=== PATIENT | male | born 1965 | race Caucasian/White ===

== ENCOUNTER 2022-12-10 15:20 | Emergency (ER) | payer BC ==
[~2022-12-10] VITALS: Ht 185.5 cm; Wt 114.2 kg
[2022-12-10] MEDS ORDERED: ONDANSETRON 4 MG/2 ML (SDV) Z0FRAN IVP STA (15:29)
[2022-12-10] MEDS ORDERED: NS IV 1000 ML 1,000 ML IV STA ×2 (15:29→16:19)
[2022-12-10] MEDS ORDERED: PANTOPRAZOLE 40 MG (PROTONIX) VIAL IV STA (15:29)
[2022-12-10 15:33] LABS: BASOPHILS # (AUTO) 0.1 10^3/uL (0.0-0.1); BASOPHILS % (AUTO) 1 % (0-10); EOSINOPHILS # (AUTO) 0.1 10^3/uL (0.0-0.3); EOSINOPHILS % (AUTO) 1 % (0-10); HEMATOCRIT 48 % (40-54); HEMOGLOBIN 17.1 g/dL (13.3-17.7); LYMPHOCYTES # (AUTO) 2.9 10^3/uL (1.0-4.0); LYMPHOCYTES % (AUTO) 24 % (12-44); MEAN CORPUSCULAR HEMOGLOBIN 34 pg (25-34); MEAN CORPUSCULAR HGB CONC 36 g/dL (32-36); MEAN CORPUSCULAR VOLUME 94 fL (80-99); MEAN PLATELET VOLUME 9.5 fL (9.0-12.2); MONOCYTES # (AUTO) 1.4 10^3/uL (0.0-1.0); MONOCYTES % (AUTO) 12 % (0-12); NEUTROPHILS # (AUTO) 7.8 10^3/uL (1.8-7.8); NEUTROPHILS % (AUTO) 63 % (42-75); PLATELET COUNT 192 10^3/uL (130-400); WHITE BLOOD COUNT 12.4 10^3/uL (4.3-11.0)
--- NOTE | 2022-12-10 15:40 | ED GI ---
General Chief Complaint: Abdominal/GI Problems Stated Complaint: N/V, UNABLE TO EAT/DRINK Source of Information: Patient History of Present Illness Date Seen by Provider: Dec 10, 2022 Time Seen by Provider: 15:21 Initial Comments 57 yo male presenting with complaints of n/v x 1 week and not able to keep water or food down. He thinks that he has a stomach bug to cause his symptoms. 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 He denies eating any different foods or new things. He was starting to get better today as he has had no vomiting but felt light headed with standing. He talked to family members and they advised him to go to the ED to get IV fluids and nausea medicine. He denies fever, chills, diarrhea, abdominal pain, pain with urination. He has not had surgery on his abdomen before. He has a history of high blood pressure and takes medicine for that but denies other prescriptions medicines. He denies alcohol or drug use. He did not try to get in with his pcp during the last week of symptoms and feeling bad because he kept thinking it would get better. However, today after being told by family members to be seen he finally decided to be evaluated so he could IV fluid and nausea medicine. He denies allergies to any medicines. He has not had a bowel movement in the last week while he has not kept anything down. Timing/Duration: 1 Week Severity/Quality: Other (denies any pain) Activities at Onset: None Modifying Factors: Worsens With Eating Associated Symptoms: No Back Pain, No Chest Pain, No Diaphoresis, No Fever/Chills, No Fatigue, No Headache, No Heartburn; Nausea/Vomiting; No Rash, No Shortness of Air, No Swelling/Mass in Abdomen, No Syncope, No Weakness Allergies and Home Medications Allergies Coded Allergies: No Known Drug Allergies (Unverified , 12/10/22) Patient Home Medication List Home Medication List Reviewed: Yes Ondansetron (Ondansetron Odt) 4 Mg Tab.rapdis, 4 MG PO Q6H PRN for NAUSEA/VOMITING Prescribed by: LYNDON CRABTREE on 12/10/22 5901 Review of Systems Review of Systems Constitutional: No chills; dizziness (mild with standing); No fever EENTM: No Symptoms Reported Respiratory: No Symptoms Reported Cardiovascular: See HPI, Lightheadedness Gastrointestinal: See HPI Genitourinary: Denies Pain Musculoskeletal: no symptoms reported Skin: no symptoms reported Psychiatric/Neurological: No Symptoms Reported Endocrine: No Symptoms Reported Hematologic/Lymphatic: No Symptoms Reported Past Wfqfatb-Uhksnw-Lrctsc Hx Patient Social History Tobacco Use?: No Smoking Status: Never a Smoker Smokeless Tobacco Frequency: Never a User Use of E-Cig and/or Vaping dev: No Use of E-Cig and/or Vaping Raymundo: Never a User Substance use?: No Alcohol Use?: No Pt feels they are or have been: No Past Medical History Surgery/Hospitalization HX: Hypertension, [place] teeth removal Physical Exam Vital Signs Vital Signs - First Documented 12/10/22 15:22 Temp 36.6 Pulse 109 Resp 18 B/P (MAP) 155/72 (99) O2 Delivery Room Air Capillary Refill : Height/Weight/BMI Height: '" Weight: lbs. oz. kg; BMI Method: General Appearance: WD/WN, no apparent distress HEENT: PERRL/EOMI, normal ENT inspection, TMs normal, pharynx normal Neck: non-tender, full range of motion, supple, normal inspection Respiratory: chest non-tender, lungs clear, normal breath sounds, no respiratory distress, no accessory muscle use Cardiovascular: normal peripheral pulses, no edema, no murmur, tachycardia (102 when first walks in the room but slowing as he rests on the bed) Peripheral Pulses: 2+ Carotid (R), 2+ Carotid (L), 2+ Radial Pulses (R), 2+ Radial Pulses (L) Gastrointestinal: normal bowel sounds, non tender, soft, no pulsatile mass Rectal: deferred Extremities: normal range of motion, non-tender, normal capillary refill Neurologic/Psychiatric: [employer] worker II-XII nml as tested, alert, normal mood/affect, oriented x 3 Skin: normal color, warm/dry Progress/Results/Core Measures Results/Orders Lab Results Laboratory Tests Test 12/10/22 15:27 12/10/22 17:09 Range/Units White Blood Count 12.4 H 4.3-11.0 10^3/uL Red Blood Count 5.04 4.30-5.52 10^6/uL Hemoglobin 17.1 13.3-17.7 g/dL Hematocrit 48 40-54 % Mean Corpuscular Volume 94 80-99 fL Mean Corpuscular Hemoglobin 34 25-34 pg Mean Corpuscular Hemoglobin Concent 36 32-36 g/dL Red Cell Distribution Width 13.0 10.0-14.5 % Platelet Count 192 130-400 10^3/uL Mean Platelet Volume 9.5 9.0-12.2 fL Immature Granulocyte % (Auto) 0 % Neutrophils (%) (Auto) 63 42-75 % Lymphocytes (%) (Auto) 24 12-44 % Monocytes (%) (Auto) 12 0-12 % Eosinophils (%) (Auto) 1 0-10 % Basophils (%) (Auto) 1 0-10 % Neutrophils # (Auto) 7.8 1.8-7.8 10^3/uL Lymphocytes # (Auto) 2.9 1.0-4.0 10^3/uL Monocytes # (Auto) 1.4 H 0.0-1.0 10^3/uL Eosinophils # (Auto) 0.1 0.0-0.3 10^3/uL Basophils # (Auto) 0.1 0.0-0.1 10^3/uL Immature Granulocyte # (Auto) 0.0 0.0-0.1 10^3/uL Sodium Level 131 L 135-145 MMOL/L Potassium Level 4.3 3.6-5.0 MMOL/L Chloride Level 84 L 98-107 MMOL/L Carbon Dioxide Level 13 L 21-32 MMOL/L Anion Gap 34 H 5-14 MMOL/L Blood Urea Nitrogen 72 H 7-18 MG/DL Creatinine 2.79 H 0.60-1.30 MG/DL Estimat Glomerular Filtration Rate 26 BUN/Creatinine Ratio 26 Glucose Level 102 70-105 MG/DL Calcium Level 8.9 8.5-10.1 MG/DL Corrected Calcium 8.5-10.1 MG/DL Total Bilirubin 1.5 H 0.1-1.0 MG/DL Aspartate Amino Transf (AST/SGOT) 77 H 5-34 U/L Alanine Aminotransferase (ALT/SGPT) 69 H 0-55 U/L Alkaline Phosphatase 84 40-136 U/L Total Protein 8.3 H 6.4-8.2 GM/DL Albumin 5.1 H 3.2-4.5 GM/DL Lipase 135 H 8-78 U/L Urine Color YELLOW Urine Clarity CLEAR Urine pH 5.5 5-9 Urine Specific Nursery 1.015 L 1.016-1.022 Urine Protein NEGATIVE NEGATIVE Urine Glucose (UA) NEGATIVE NEGATIVE Urine Ketones 3+ H NEGATIVE Urine Nitrite NEGATIVE NEGATIVE Urine Bilirubin 1+ H NEGATIVE Urine Urobilinogen 0.2 < = 1.0 MG/DL Urine Leukocyte Esterase NEGATIVE NEGATIVE Urine RBC (Auto) TRACE-I H NEGATIVE Urine RBC NONE /HPF Urine WBC NONE /HPF Urine Squamous Epithelial Cells 2-5 /HPF Urine Crystals NONE /LPF Urine Bacteria TRACE /HPF Urine Casts PRESENT /LPF Urine Hyaline Casts 5-10 H /LPF Urine Mucus NEGATIVE /LPF Urine Culture Indicated NO My Orders Orders - LYNDON CRABTREE MD Comprehensive Metabolic Panel (12/10/22 15:29) Lipase (12/10/22 15:29) Ua Culture If Indicated (12/10/22 15:29) Ed Iv/Invasive Line Start (12/10/22 15:29) Cbc With Automated Diff (12/10/22 15:29) Ns Iv 1000 Ml (Sodium Chloride 0.9%) (12/10/22 15:29) Ondansetron Injection (Zofran Injectio (12/10/22 15:29) Pantoprazole Injection (Protonix Injecti (12/10/22 15:29) Ns Iv 1000 Ml (Sodium Chloride 0.9%) (12/10/22 16:19) Vital Signs/I&O 12/10/22 15:22 Temp 36.6 Pulse 109 Resp 18 B/P (MAP) 155/72 (99) O2 Delivery Room Air Progress Progress Note #1: Progress Note Potential diagnosis of pancreatitis, gastritis, gastroenteritis, bowel ob struction, cholecystitis, colitis, diverticulitis, pyelonephritis, food poisoning, renal failure, hepatic failure, electrolyte imbalance. Obtain IV access and check labs CBC, chemistry, lipase, urinalysis. Administer normal saline 1 L IV fluid bolus for hydration, Zofran 4 mg IV for nausea and vomiting, pantoprazole 40 mg IV x1 for possible gastritis since he has not had anything on his stomach for a week. Considering imaging of his abdomen pelvis but he has no pain even on deep palpation and has normal active bowel sounds will defer radiation and imaging for now. If he has change in symptoms or labs are showing an abnormality that requires imaging then this will be added later. Can try p.o. challenge after he receives the Zofran. Progress Note #2: Time: 15:51 Progress Note CBC with mild elevation of WBC to 12.4 with normal differential and no left shift. 1604 Chemistry came back showing several abnormalities. He had Na 131, K 4.3, Cl 84, CO2 13, AG 34, BUN 72, Cr 2.79, Lipase 135, T Bili 1.5, AST 77 and ALT 69. He had the initial NS 1 L bolus finish infusing as I walked in the room to update him on the lab results. I will order a second bag of fluids and let him try a PO challenge since he does not feel nauseated currently. I did advise him that I feel his labs are such that he would benefit from admission to the hospital. I explained that with his creatinine almost 3 times the normal level and showing dehydration on his test he would need admission to continue IV fluids beyond the bolus fluids I can give here. I can only bolus so many liters here before it would start to cause other problems with his electrolytes and potentially flood his lungs with fluid as well. Patient became very anxious and nervous when I mentioned admission to the hospital and was immediately saying he did not want to do that. He also said he did not want to have his kidneys completely shut down on him but he would prefer to go home. I advised him that I could not force him to be admitted to the hospital but felt that it was the safest and best way to manage his dehydration and acute kidney injury. 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 He asked about going home again and I advised him yet again that I can not force him to be admitted. If he goes home against medical advice then he would need to keep pushing fluids at home and use nausea medicine to keep his stomach settled. He would also need to get labs rechecked in 24-48 hours at most to ensure that his kidney function and labs were returning to normal. While the 2nd IVF bolus of NS 1 Liter infuses and he tries a po challenge, will give him time to reach out to family members to help him decide about admit vs discharge to home AMA. If he is leaving AMA I would still prefer he wait here long enough to get enough fluids that he is producing urine and able to give a specimen for testing. If he does that I would also recheck a BMP to see if his Kidney function and chemistry panel was improving as he got fluid. Progress Note #3: Time: 17:06 Progress Note Patient was providing a urine specimen as he had drank 2 glasses of water and had his 2nd Liter bolus of NS infuse. If patient is still insistent on wanting to leave A will send him with information about kidney failure and stress hydration as well as lab recheck of his renal function within 24 to 48 hours. 1713 after repeated discussion with the patient he states he felt that he was able to drink and could go home and would follow up with clinic within 24 to 48 hours to have recheck of Chemistry and renal function. He did produce 700 mL of eileen colored urine prior to discharge. Sent with a prescription for Zofran to the pharmacy. Encouraged him to keep sipping on fluids such as Pedialyte and a full liquid diet for 24 hours after that he could advance to a bland and soft diet if he was tolerating it and from there advance to regular diet. If he has repeated vomiting and things or not improving with medication then he should return or be seen. He voiced understanding that his kidneys are currently failing from dehydration and hopefully they will go back to normal function with hydration at home but that is not guaranteed and he could have permanent damage to his kidneys. He voiced understanding that he needs to be seen in clinic within 24 to 48 hours to have repeat chemistry lab and renal function performed to ensure his kidneys are going back to normal. He still opts to leave AMA and try things at home for hydration and follow up with pcp clinic. Sent with information about kidney failure and dehydration. 1723 UA with specific gravity 1.015 but he had 3+ ketones present. No proteinuria to indicate more severe kidney damage. Departure Impression Primary Impression: Acute renal failure with oliguria Additional Impressions: Nausea and vomiting Qualified Codes: R11.14 - Bilious vomiting Dehydration Acute kidney injury (nontraumatic) Disposition: 07 AGAINST MEDICAL ADVICE Condition: Against Medical Advice Departure-Patient Inst. Decision time for Depature: 17:15 Referrals: ANASTACIO WRIGHT DO (PCP/Family) Primary Care Physician Patient Instructions: Dehydration, Adult ED, Full Liquid Diet, Nausea and Vomiting, Adult ED, Ulcer and Gastritis Diet, Acute Kidney Injury (DC), Kidney Failure (DC) Add. Discharge Instructions: Try to keep sipping on fluids and stay well-hydrated. Use the dissolving nausea tablets to help keep your stomach settled so you can drink and eat better. Still start with a liquid diet for 24 hours to make sure you are handling that and then you can advance to a bland and soft diet for at least 24 hours of tolerating that before advancing to more of a regular diet. Check back with your regular provider in the clinic for repeat labs looking at your electrolytes and kidney function within 24 to 48 hours. Your BUN was 72 and Cr 2.79 today. Normal BUN is usually less than 20 and Cr around 1 or less. All discharge instructions reviewed with patient and/or family. Voiced understanding. Scripts Ondansetron (Ondansetron Odt) 4 Mg Tab.rapdis 4 MG PO Q6H PRN for NAUSEA/VOMITING for 4 Days, #16 TAB 0 Refills Prov: LYNDON CRABTREE MD 12/10/22 Work/School Note: Work Release Form Date Seen in the Emergency Department: Dec 10, 2022 Return to Work: Dec 11, 2022 Restrictions: Return-No Vomiting(24hrs) LYNDON CRABTREE MD Dec 10, 2022 15:40
[2022-12-10] MEDS ORDERED: ONDA4TAB11 PO (15:52)
[2022-12-10 15:57] LABS: POTASSIUM 4.3 MMOL/L (3.6-5.0); SODIUM 131 MMOL/L (135-145)
[2022-12-10 15:58] LABS: ALANINE AMINOTRANSFERASE 69 U/L (0-55); ALBUMIN 5.1 GM/DL (3.2-4.5); ALKALINE PHOSPHATASE 84 U/L (40-136); BILIRUBIN,TOTAL 1.5 MG/DL (0.1-1.0); BUN/CREATININE RATIO 26; CALCIUM 8.9 MG/DL (8.5-10.1); CARBON DIOXIDE 13 MMOL/L (21-32); CHLORIDE 84 MMOL/L (98-107); CREATININE SERUM 2.79 MG/DL (0.60-1.30); GFR ESTIMATED 26; GLUCOSE 102 MG/DL (70-105); LIPASE 135 U/L (8-78); TOTAL PROTEIN 8.3 GM/DL (6.4-8.2)
[2022-12-10 17:17] LABS: CLARITY,URINE CLEAR; COLOR,URINE YELLOW; GLUCOSE, URINE (UA) NEGATIVE (NEGATIVE); KETONES,URINE 3+ (NEGATIVE); LEUKOCYTE ESTERASE ,URINE NEGATIVE (NEGATIVE); NITRITE,URINE NEGATIVE (NEGATIVE); PH,URINE 5.5 (5-9); PROTEIN,URINE NEGATIVE (NEGATIVE)
[2022-12-10 17:21] LABS: BACTERIA,URINE TRACE /HPF
[2022-12-10 17:23] VITALS: BP 134/85
[2022-12-10 17:47] LABS: BILIRUBIN,URINE 1+ (NEGATIVE)
== END 2022-12-10 17:24 | disposition left against medical advice (07) ==
LOC: ER FS 15:20
DX: N17.9 Acute kidney failure, unspecified (principal); E86.0 Dehydration; R34 Anuria and oliguria; I10 Essential (primary) hypertension; Z79.899 Other long term (current) drug therapy
CPT/HCPCS: 36415; 80053; 81000; 83690; 85025; 99283

== ENCOUNTER 2023-03-12 09:17 | Emergency (ER) | payer BC ==
[~2023-03-12] VITALS: Ht 185.5 cm; Wt 117.0 kg
[~2023-03-12 09:17] MED LIST: ONDA4TAB11 PO
[2023-03-12] MEDS ORDERED: NS IV 1000 ML 1,000 ML IV STA ×2 (09:23→10:33)
[2023-03-12] MEDS ORDERED: ONDANSETRON 4 MG/2 ML (SDV) Z0FRAN IVP STA (09:23)
--- NOTE | 2023-03-12 09:37 | ED GI ---
General Stated Complaint: VOMITING Source of Information: Patient, Old Records (ED visit from Dec 10, 2022 for similar complaint) History of Present Illness Date Seen by Provider: March 12, 2023 Time Seen by Provider: 09:21 Initial Comments 57 yo male presenting with complaint of nausea/vomiting for 9 days. He states he has still been taking his blood pressure medicines for the last 9 days but only taking it with a sip of water. He has soreness and tightness in middle of chest from vomiting so much. He denies any diarrhea or bowel movement at all in last 9 days. He has been urinating but only a very small amount at a time as he has not been drinking much. When his symptoms started he denied any ill contacts or new medicines or injury. He has not been running a fever or having chills. He had similar episode December 10, 2022 where for a week he was unable to keep anything down and had developed acute kidney injury with a creatinine that gone up to 2.79. He had refused admission at that time and left AMA to drink fluids on his own and states that they have rechecked his labs and his kidney function had improved but he could not stay what number go down to. This time he has had symptoms for 9 days at home and been mostly laying around. He denies any history of abdominal surgeries. He has no allergies to medications. He denies drug or alcohol abuse Timing/Duration: Constant (For the last 9 days) Severity/Quality: Mild, Aching (In the middle of the chest from throwing up so much) Activities at Onset: None Modifying Factors: Worsens With Eating Associated Symptoms: No Back Pain, No Diaphoresis, No Fever/Chills; Fatigue; No Headache; Heartburn, Nausea/Vomiting; No Rash, No Shortness of Air, No Swelling/Mass in Abdomen, No Syncope, No Weakness Allergies and Home Medications Allergies Coded Allergies: No Known Drug Allergies (Unverified , 12/10/22) Patient Home Medication List Home Medication List Reviewed: Yes Ondansetron (Ondansetron Odt) 4 Mg Tab.rapdis, 4 MG PO Q6H PRN for NAUSEA/VOMITING Prescribed by: LYNDON CRABTREE on 12/10/22 7417 Review of Systems Review of Systems Constitutional: No chills, No fever EENTM: No Symptoms Reported Respiratory: No Symptoms Reported Cardiovascular: See HPI Gastrointestinal: See HPI Genitourinary: See HPI Musculoskeletal: no symptoms reported Skin: No rash Psychiatric/Neurological: Tingling (left hand pinky and ring finger) Past Qeyilpi-Pokuei-Hmbbyv Hx Patient Social History Tobacco Use?: No Use of E-Cig and/or Vaping dev: No Substance use?: No Past Medical History Surgery/Hospitalization HX: Hypertension, [place] teeth removal Physical Exam Vital Signs Vital Signs - First Documented 03/12/23 09:21 Temp 36.1 Pulse 114 Resp 18 B/P (MAP) 105/55 (72) O2 Delivery Room Air Capillary Refill : Height/Weight/BMI Height: '" Weight: lbs. oz. kg; 33.00 BMI Method: General Appearance: WD/WN, no apparent distress HEENT: PERRL/EOMI, normal ENT inspection, TMs normal; No pharynx normal (slightly dry mucous membranes) Neck: non-tender, full range of motion, supple, normal inspection Respiratory: chest non-tender, lungs clear, normal breath sounds, no respiratory distress, no accessory muscle use Cardiovascular: normal peripheral pulses, regular rate, rhythm Gastrointestinal: non tender, soft, no pulsatile mass, abnormal bowel sounds (hypoactive) Rectal: deferred Extremities: normal range of motion, non-tender, normal capillary refill Neurologic/Psychiatric: alert, oriented x 3 Skin: normal color, warm/dry Focused Exam Lactate Level 03/12/23 11:51: Lactic Acid Level 2.86*H Lactic Acid Level Laboratory Tests Test 03/12/23 11:51 Lactic Acid Level 2.86 MMOL/L (0.50-2.00) *H Progress/Results/Core Measures Results/Orders Lab Results Laboratory Tests Test 03/12/23 09:22 03/12/23 09:41 03/12/23 11:51 Range/Units Urine Color YELLOW Urine Clarity SL CLOUDY Urine pH 5.5 5-9 Urine Specific [place] >=1.030 1.016-1.022 Urine Protein 2+ H NEGATIVE Urine Glucose (UA) TRACE H NEGATIVE Urine Ketones 1+ H NEGATIVE Urine Nitrite NEGATIVE NEGATIVE Urine Bilirubin 2+ H NEGATIVE Urine Urobilinogen 0.2 < = 1.0 MG/DL Urine Leukocyte Esterase NEGATIVE NEGATIVE Urine RBC (Auto) 1+ H NEGATIVE Urine RBC 2-5 H /HPF Urine WBC 5-10 H /HPF Urine Squamous Epithelial Cells 10-25 H /HPF Urine Crystals PRESENT H /LPF Urine Amorphous Sediment MOD ASHISH URATES H /LPF Urine Bacteria MODERATE H /HPF Urine Casts NONE /LPF Urine Mucus NEGATIVE /LPF Urine Culture Indicated YES White Blood Count 13.1 H 4.3-11.0 10^3/uL Red Blood Count 4.51 4.30-5.52 10^6/uL Hemoglobin 15.2 13.3-17.7 g/dL Hematocrit 44 40-54 % Mean Corpuscular Volume 97 80-99 fL Mean Corpuscular Hemoglobin 34 25-34 pg Mean Corpuscular Hemoglobin Concent 35 32-36 g/dL Red Cell Distribution Width 13.1 10.0-14.5 % Platelet Count 214 130-400 10^3/uL Mean Platelet Volume 9.5 9.0-12.2 fL Immature Granulocyte % (Auto) 0 % Neutrophils (%) (Auto) 61 42-75 % Lymphocytes (%) (Auto) 29 12-44 % Monocytes (%) (Auto) 7 0-12 % Eosinophils (%) (Auto) 2 0-10 % Basophils (%) (Auto) 1 0-10 % Neutrophils # (Auto) 8.0 H 1.8-7.8 10^3/uL Lymphocytes # (Auto) 3.8 1.0-4.0 10^3/uL Monocytes # (Auto) 1.0 0.0-1.0 10^3/uL Eosinophils # (Auto) 0.2 0.0-0.3 10^3/uL Basophils # (Auto) 0.1 0.0-0.1 10^3/uL Immature Granulocyte # (Auto) 0.0 0.0-0.1 10^3/uL Sodium Level 131 L 135-145 MMOL/L Potassium Level 4.3 3.6-5.0 MMOL/L Chloride Level 85 L 98-107 MMOL/L Carbon Dioxide Level 13 L 21-32 MMOL/L Anion Gap 33 H 5-14 MMOL/L Blood Urea Nitrogen 65 H 7-18 MG/DL Creatinine 5.49 H 0.60-1.30 MG/DL Estimat Glomerular Filtration Rate 12 BUN/Creatinine Ratio 12 Glucose Level 88 70-105 MG/DL Calcium Level 9.3 8.5-10.1 MG/DL Corrected Calcium 8.5-10.1 MG/DL Magnesium Level 2.8 H 1.6-2.4 MG/DL Total Bilirubin 1.2 H 0.1-1.0 MG/DL Aspartate Amino Transf (AST/SGOT) 68 H 5-34 U/L Alanine Aminotransferase (ALT/SGPT) 57 H 0-55 U/L Alkaline Phosphatase 89 40-136 U/L Total Protein 7.9 6.4-8.2 GM/DL Albumin 5.0 H 3.2-4.5 GM/DL Lipase 123 H 8-78 U/L Lactic Acid Level 2.86 *H 0.50-2.00 MMOL/L My Orders Orders - LYNDON CRABTREE MD Comprehensive Metabolic Panel (03/12/23 09:23) Lipase (03/12/23 09:23) Ua Culture If Indicated (03/12/23 09:23) Ed Iv/Invasive Line Start (03/12/23:23) Cbc With Automated Diff (03/12/23 09:23) Ondansetron Injection (Zofran Injectio (03/12/23 09:23) Ns Iv 1000 Ml (Sodium Chloride 0.9%) (03/12/23 09:23) Pantoprazole Injection (Protonix Injecti (03/12/23 09:38) Urine Culture (03/12/23 09:22) Ns Iv 1000 Ml (Sodium Chloride 0.9%) (03/12/23 10:33) Ekg Tracing (03/12/23 10:33) Monitor-Rhythm Ecg Trace Only (03/12/23 10:33) Magnesium (03/12/23 10:33) Lactic Acid Analyzer (03/12/23 11:23) D5w 1000 Ml Iv Solu... W/Sodium Bicarbon (03/12/23 11:29) Vital Signs/I&O 03/12/23 09:21 Temp 36.1 Pulse 114 Resp 18 B/P (MAP) 105/55 (72) O2 Delivery Room Air Progress Progress Note #1: Progress Note Potential diagnosis of acute kidney injury, gastroenteritis, gastritis, divertic ulitis, colitis, bowel obstruction, peptic ulcer disease, electrolyte imbalance, hepatic failure, renal failure. Obtain a urine specimen for urinalysis and peripheral IV access. Send labs for complete blood count, lipase, comprehensive metabolic profile. Administer normal saline 1 L IV fluid bolus for hydration, Zofran 4 mg IV for nausea and vomiting, pantoprazole 40 mg IV for gastritis and pain into his chest. Progress Note #2: Time: 10:02 Progress Note Complete blood count shows mild elevation of his white blood cell count which might be due to stress with his 9 days of nausea and vomiting. His white blood cell count is 13.1 thousand. His hemoglobin was normal at 15.2. His urinalysis specific gravity greater than 1.030 for dehydration. He also has 2+ proteins, 1+ ketones, 2+ bilirubin, moderate bacteria, 5-10 white blood cells, 10-25 epithelial cells. A urine culture was reflexed due to these findings. He did not have leukocyte esterase or nitrates. Chemistry panel still pending. Will defer antibiotic treatment until culture results as patient was denying symptoms of UTI such as frequency, burning, blood in the urine. Progress Note #3: Time: 10:35 Progress Note Comprehensive metabolic profile came back showing acute kidney injury with creatinine up to 5.49. His BUN was elevated as well to go with dehydration at 65. Sodium was slightly low at 131. Potassium was okay at the moment at 4.3. Chloride of 85 and CO2 of 13 with an anion gap of 33. His GFR was estimated to be 12. His glucose was okay at 88. His magnesium was high at 2.8. Calcium at low end of normal at 9.3. Lipase slightly elevated at 123 which could be related to his nausea and vomiting and irritation to the pancreas and got from the vomiting. Its not high enough to consider diagnosis of pancreatitis at this time. His ALT T was slightly up to 57 and AST of 68 with a total bilirubin of 1.2. Again this would be related to dehydration and the recurrent nausea and vomiting over the last 9 days. I updated the patient on the findings and results. Ordered an additional liter of normal saline IV fluid bolus to help with his hydration. I stressed that the patient would have to be admitted to hospital that would have nephrology care. Regarding going to [place] versus [place] the patient said he was not familiar with either location as he had only lived in [place] for a little over a year. He finally decided that [facility] would be acceptable. We will place a call to [facility] access center to try and initiate transfer. In the meantime we will also add on a electrocardiogram to ensure that his electrolyte imbalance is not causing signs of arrhythmia or heart damage. Placed on cardiac information technology technician and on my initial interpretation his heart rate is regular and sinus and approximately 90 bpm. Progress Note #4: Time: 10:52 Progress Note Call placed to [facility] access [place] and I spoke with SARA Cheney. I gave him the basic information on the patient and that I was needing transfer to a facility that would have nephrology such as [facility] or [facility]. He voiced that [facility] did have beds. He requested a facesheet and would contact me back after getting in touch with the hospitalist for [place]. Progress Note #5: Time: 11:50 Progress Note SARA Lackey, from [facility] called and gave a bed assignment and number to call report for the patient to come to [facility]. Initial ECG Impression Date: March 12, 2023 Initial ECG Impression Time: 11:08 Initial ECG Rate: 92 Initial ECG Rhythm: Normal Sinus Initial ECG Comparisson: No Previous ECG Available Comment My personal interpretation and review of his electrocardiogram shows a sinus rhythm with a heart rate of 92 bpm. MO interval [address] elevation. QT interval 342 ms with a QTc interval 392 ms. He has no prior tracing available for comparison. Critical Care Note Critical Care Total Time (minutes) 45 minutes Progress I spent at least 45 minutes in critical care time with the patient. Time excludes separately billable procedures. Time spent obtaining information and history from patient and electronic medical record, ordering test and reviewing results, ordering interventions and reviewing response, discussion with consultants, documentation in the chart. Patient was at risk of shock or arrhythmia with his acute kidney injury and electrolyte imbalance. He required direct intervention and monitoring with treatment to continue his stability and arrange for transfer to higher level of care. Departure Impression Primary Impression: Acute renal failure with oliguria Additional Impressions: Nausea and vomiting in adult Dehydration Disposition: 30 STILL A PATIENT Condition: Critical Transfer Transfer Reason: Exceeds level of care (Nephrology services indicated with his IVANIA and possibility of temporary dialysis if he is not responding to IV fluid hydration alone. ) Time Spoke to Accepting Phy: 11:18 Transfer Progress Notes Discussed with Dr. Garcia resident physician with Dr. Carmina Eastman at [facility]. I reviewed the patient's presentation of 9 days of nausea vomiting and poor oral intake. Currently his vital signs were stable and she was not showing signs of shock. He has dehydration with concentrated white blood cell count of 13.1 and hemoglobin of 15.2. His urinalysis was elevated specific gravity greater than 1030 to go with his dehydration. He had 1+ ketones and 2+ protein with moderate bacteria and 5-10 white blood cells, 10-25 epithelial cells. A urine culture was reflexed due to the bacteria but he had no nitrites or leukocyte esterase. His comprehensive metabolic profile had a sodium of 131, potassium 4.3, chloride 85, CO2 of 13 with an anion gap of 33. His BUN was up to 65 with a creatinine of 5.49 and a estimated GFR of 12. His glucose was okay at 88. Magnesium elevated to 2.8 and calcium low normal at 9.3. He had mild elevation of his liver function test but did not appear to have pancreatitis or acute gallbladder issues. He is getting a second liter of normal saline as I speak with the resident physician and we will plan on transitioning to D5 with 150 mill equivalents of sodium bicarb at 100 mils an hour while waiting on room placement. He accepted patient for transfer with Dr. Eastman as the accepting attending. Transfer Facility: [facility] Method of Transfer: EMS Departure-Patient Inst. Referrals: ANASTACIO RWIGHT DO (PCP) Primary Care Physician LYNODN CRABTREE MD March 12, 2023 09:37
[2023-03-12 09:38] LABS: CLARITY,URINE SL CLOUDY; COLOR,URINE YELLOW; GLUCOSE, URINE (UA) TRACE (NEGATIVE); KETONES,URINE 1+ (NEGATIVE); LEUKOCYTE ESTERASE ,URINE NEGATIVE (NEGATIVE); NITRITE,URINE NEGATIVE (NEGATIVE); PH,URINE 5.5 (5-9); PROTEIN,URINE 2+ (NEGATIVE)
[2023-03-12] MEDS ORDERED: PANTOPRAZOLE 40 MG (PROTONIX) VIAL IV STA (09:38)
[2023-03-12 09:45] LABS: BASOPHILS # (AUTO) 0.1 10^3/uL (0.0-0.1); BASOPHILS % (AUTO) 1 % (0-10); EOSINOPHILS # (AUTO) 0.2 10^3/uL (0.0-0.3); EOSINOPHILS % (AUTO) 2 % (0-10); HEMATOCRIT 44 % (40-54); HEMOGLOBIN 15.2 g/dL (13.3-17.7); LYMPHOCYTES # (AUTO) 3.8 10^3/uL (1.0-4.0); LYMPHOCYTES % (AUTO) 29 % (12-44); MEAN CORPUSCULAR HEMOGLOBIN 34 pg (25-34); MEAN CORPUSCULAR HGB CONC 35 g/dL (32-36); MEAN CORPUSCULAR VOLUME 97 fL (80-99); MEAN PLATELET VOLUME 9.5 fL (9.0-12.2); MONOCYTES % (AUTO) 7 % (0-12); NEUTROPHILS % (AUTO) 61 % (42-75); PLATELET COUNT 214 10^3/uL (130-400); WHITE BLOOD COUNT 13.1 10^3/uL (4.3-11.0)
[2023-03-12 09:49] LABS: BILIRUBIN,URINE 2+ (NEGATIVE)
[2023-03-12 09:50] LABS: AMORPHOUS SEDIMENT,UR MOD AMOR URATES /LPF; BACTERIA,URINE MODERATE /HPF
[2023-03-12 10:14] LABS: ALANINE AMINOTRANSFERASE 57 U/L (0-55); ALKALINE PHOSPHATASE 89 U/L (40-136); BILIRUBIN,TOTAL 1.2 MG/DL (0.1-1.0); BUN/CREATININE RATIO 12; CALCIUM 9.3 MG/DL (8.5-10.1); CARBON DIOXIDE 13 MMOL/L (21-32); CHLORIDE 85 MMOL/L (98-107); CREATININE SERUM 5.49 MG/DL (0.60-1.30); GFR ESTIMATED 12; GLUCOSE 88 MG/DL (70-105); LIPASE 123 U/L (8-78); POTASSIUM 4.3 MMOL/L (3.6-5.0); SODIUM 131 MMOL/L (135-145); TOTAL PROTEIN 7.9 GM/DL (6.4-8.2)
[2023-03-12] MEDS ORDERED: SODIUM BICARBONATE 8.4% SYR 150 MEQ in D5W 1000 ML IV SOLUTION 1,000 ML IV STA (11:29)
[2023-03-12 12:20] VITALS: BP 134/78
== END 2023-03-12 12:20 | disposition short-term general hospital (02) ==
LOC: EDUNIT# 09:17 → ER FS 09:19
DX: N17.9 Acute kidney failure, unspecified (principal); R34 Anuria and oliguria; E86.0 Dehydration; I10 Essential (primary) hypertension; Z79.899 Other long term (current) drug therapy
CPT/HCPCS: 36415; 80053; 81000; 83605; 83690; 83735; 85025; 87088; 93005; 93041